=== PATIENT | female | born 1940 | race Caucasian/White ===

== ENCOUNTER 2021-10-28 00:50 | Inpatient (IN) ==
--- NOTE | 2021-10-28 01:29 | Emergency Department Note ---
History of Present Illness General Chief complaint: Mental Health Evaluation Stated complaint: 302 PETITION Time Seen by Provider: 10/28/21 00:57 Source: patient and EMS Mode of arrival: EMS Limitations: altered mental status History of Present Illness Provider complaint: Mental health evaluation This is an 81-year-old female brought in by EMS for mental health evaluation. 302 petition statement written by state [place]. The petition describes paranoia and hallucinations by the patient and concern for her ability to care for herself. Patient was seen and evaluated yesterday at [facility] in the emergency room. Patient underwent labs, CT of the head, UDS, urinalysis, Covid and influenza swabs, all of which were negative. Patient states that there was someone in her house but she did not see them. She states that she knows this because the lights were on. She states the police officers did check her house but did not find anyone and she believes this is because they were hiding. Patient states she does have a brother who comes to visit her in the middle the night with his girlfriend and argues with someone. Patient states she does not have any other friends or family. Patient states she lives in a senior apartment complex. Patient states she was last hospitalized back in August when she was diagnosed with a blood clot and she does take a daily blood thinner, Eliquis. Patient denies any other recent change in her medications. Patient denies any fevers, cough or cold symptoms. Patient states she is hungry. With the assistance of case management, we were able to print out the evaluation earlier today at [facility] including labs, UA, imaging, as well as the ER visit note. They did offer patient inpatient mental health evaluation and she declined. Patient denied SI, HI which she does again here tonight. EMS reports [place] is currently on psych [place]. Pt seen during a time of high acuity and national emergency pandemic while wearing PPE. Home Medications Medication Instructions Recorded Confirmed Type apixaban 5 mg tablet (Eliquis) 5 mg PO BID 10/28/21 10/28/21 History cholecalciferol (vitamin D3) 25 25 mcg PO DAILY 10/28/21 10/28/21 History mcg (1,000 unit) tablet fluticasone propionate 50 2 spray INTRANASAL DAILY 10/28/21 10/28/21 History mcg/actuation nasal spray,suspension (Flonase Allergy Relief) lisinopril 10 mg tablet 10 mg PO DAILY 10/28/21 10/28/21 History loratadine 10 mg tablet 10 mg PO DAILY 10/28/21 10/28/21 History metoprolol tartrate 25 mg tablet 12.5 mg PO BID 10/28/21 10/28/21 History sodium chloride 0.65 % nasal spray 1 spray INTRANASAL BID 10/28/21 10/28/21 History aerosol ([place] Nasal) valacyclovir 500 mg tablet 500 mg PO DAILY 10/28/21 10/28/21 History venlafaxine 150 mg 150 mg PO DAILY 10/28/21 10/28/21 History capsule,extended release 24 hr Allergies Allergy/AdvReac Type Severity Reaction Status Date / Time No Known Allergies Allergy Unverified 10/28/21 01:30 Past Med/Surg History Medical History (Updated 10/29/21 @ 02:21 by Missy Cates DO) Generalized anxiety disorder GERD (gastroesophageal reflux disease) Hyperlipidemia Hypertension Left ventricular outflow obstruction Pulmonary embolism Social History (Updated 10/28/21 @ 01:28 by Missy Cates DO) Smoking Status: Never smoker Hx Alcohol Use: No Hx Substance Use: No Preferred Language: Nigerien Communication Ability: Impaired Application Integration Specialist Required: No Beliefs That Will Affect Care: None marital status: Unknown Current Living Situation: Alone Current Living Situation Comment: Lives in prison apartments. Other Information That Helps Us Care for You: No Feels Safe at Home: Yes and No Is there a partner from a previous relationship who is making you feel unsafe now?: No Any Concerns about Your Family Situation: No Would You Like to Speak to Someone About Your Situation: No Safety Concerns: Afraid for Self Assistive Devices: None Assistive Devices Comment: Reading glasses. Review of Systems A total of 10 systems reviewed and were otherwise negative All systems reviewed & are unremarkable except as noted in HPI & below Physical Exam Vital Signs Vital Signs - 24 hr 10/28/21 01:20 Temperature 37.2 C Temperature Source Oral Pulse Rate 88 Pulse Rate [Right Finger] 88 Respiratory Rate 20 Respiratory Effort / Characteristics Non-Labored Respiratory Depth Normal Respiratory Pattern Regular Blood Pressure 176/74 H Blood Pressure [Right Arm] 176/74 H Blood Pressure Mean 108 Blood Pressure Mean [Right Arm] 108 Blood Pressure Position Lying Pulse Oximetry 95 Oxygen Delivery Method Room Air Sepsis Recent Fever Within 48 Hours No Sepsis New/Unexplained Change in Mental Status Yes Sepsis Action Taken by Nursing No Action Required GENERAL: alert, well appearing, well nourished, no distress, non-toxic EYE EXAM: normal conjunctiva, PERRL and EOM's grossly intact OROPHARYNX: no exudate, no erythema, lips, buccal mucosa, and tongue normal and mucous membranes are moist NECK: supple, no nuchal rigidity, no adenopathy, non-tender LUNGS: Clear to auscultation. Normal chest wall mechanics, no w/r/r HEART: no murmurs, S1 normal and S2 normal ABDOMEN: abdomen soft, non-tender, normo-active bowel sounds, no masses, no rebo und or guarding. BACK: Back is symmetrical on inspection and there is no deformity, no midline tenderness, no CVA tenderness. SKIN: no rashes and no bruising UPPER EXTREMITIES: upper extremities are grossly normal. FROM, nml pulses b/l. LOWER EXTREMITIES: No pitting edema. FROM, nml pulses b/l. NEURO EXAM: Normal sensorium, cranial nerves II-XII grossly intact, normal speech, no gross weakness of arms, no gross weakness of legs. Gross sensation intact. Course Course 0145: Case management states upon additional review of [facility] records, there is one son listed however they were in [place]. There is also the name of a neighbor who periodically checks on her and has taken her home from the hospital previously. No prior psychiatric history noted in [facility] records. 0202: Discussed with Dr. Arboleda. Administered Medications Apixaban (Apixaban 5 Mg Tablet) 5 mg PO BID LEON Stop: 11/27/21 08:59 Last Admin: 10/28/21 20:30 Dose: 5 mg Documented by: [id number] Admin: 10/28/21 09:30 Dose: 5 mg Documented by: [id number] Fluticasone Propionate (Fluticasone Propionate Na Spr 16 Gm Btl) 2 sprays NA DAILY LEON Stop: 11/27/21 08:59 Last Admin: 10/28/21 09:31 Dose: 2 sprays Documented by: [id number] Ceftriaxone Sodium 1,000 mg/ (Dextrose) 50 mls @ 100 mls/hr IV Q24H LEON; Protocol Stop: 11/07/21 07:59 Last Infusion: 10/28/21 10:29 Dose: 0 mls/hr Documented by: [id number] Admin: 10/28/21 09:30 Dose: 100 mls/hr Documented by: [id number] Lisinopril (Lisinopril 10 Mg Tab) 10 mg PO DAILY LEON Stop: 11/27/21 08:59 Last Admin: 10/28/21 09:30 Dose: 10 mg Documented by: [id number] Loratadine (Loratadine 10 Mg Tab) 10 mg PO DAILY LEON Stop: 11/27/21 08:59 Last Admin: 10/28/21 09:31 Dose: 10 mg Documented by: [id number] Metoprolol Tartrate (Metoprolol Tartrate 25 Mg Tab) 12.5 mg PO BID LEON Stop: 11/27/21 08:59 Last Admin: 10/28/21 20:31 Dose: 12.5 mg Documented by: [id number] Admin: 10/28/21 09:31 Dose: 12.5 mg Documented by: [id number] Sodium Chloride (Sodium Chloride 0.65% Na Soln 45 Ml ([place])) 1 sprays NA BID LEON Stop: 11/27/21 08:59 Last Admin: 10/28/21 20:34 Dose: Not Given Documented by: [id number] Admin: 10/28/21 09:31 Dose: 1 sprays Documented by: [id number] Valacyclovir HCl (Valacyclovir Hcl 500 Mg Tablet) 500 mg PO DAILY LEON Stop: 11/27/21 08:59 Last Admin: 10/28/21 09:31 Dose: 500 mg Documented by: [id number] Venlafaxine HCl (Venlafaxine Hcl Xr 150 Mg Capxr) 150 mg PO DAILY LEON Stop: 11/27/21 08:59 Last Admin: 10/28/21 09:32 Dose: 150 mg Documented by: [id number] Vitamin D (Cholecalciferol 1,000 Units 25 Mcg Tab) 1,000 units PO DAILY LEON Stop: 11/27/21 08:59 Last Admin: 10/28/21 09:30 Dose: 1,000 units Documented by: [id number] Medical Decision Making Differential Diagnosis Differential diagnoses considered include mood disorder, infection, hypoglycemia, electrolyte abnormalities, cardiac sources, intracerebral event, toxicologic, neurologic, as well as others. Medical Records Attestation: I reviewed the patient's medical records. Home Medications Current Medication List: was personally reviewed by me Laboratory Data Attestation: I reviewed the patient's lab results. Result diagrams: 10/28/21 07:04 10/28/21 07:04 Lab Results 10/28/21 10/28/21 10/28/21 Range/Units 01:55 02:04 02:04 Magnesium 2.4 (1.8-2.4) mg/dl Vitamin B12 778 (193-986) pg/ml Folate > 20.00 (>5.38) ng/ml Urine Color Yellow Urine Appearance Clear (Clear) Urine pH 6.5 (4.5-7.5) Ur Specific [place] 1.023 (1.000-1.030) Urine Protein Negative (Negative) Urine Glucose (UA) Negative (Negative) Urine Ketones Trace H (Negative) Urine Blood Negative (Negative) Urine Nitrite Negative (Negative) Urine Bilirubin Negative (Negative) Urine Urobilinogen Negative (Negative) Ur Leukocyte Esterase 1+ H (Negative) Urine WBC (Auto) 10-30 H (0-5) /hpf Urine RBC (Auto) 0-4 (0-4) /hpf U Hyaline Cast (Auto) 1-5 (0-5) /lpf U Epithel Cells (Auto) 10-20 H (0-5) /lpf Urine Bacteria (Auto) Negative (Negative) MDM Narrative This is an 81-year-old female brought in by EMS with a 302 petition due to concern for ability to care for herself and new psychosis. Patient with paranoia and delusions as described by petition as well as by patient report at bedside. Patient seen and evaluated at [facility] several hours ago. We were able to pull those records from [facility] and review the labs, urine, urine drug screen, Covid/flu/RSV swabs, and CT of the head which were all reassuring. Patient has no complaints at bedside. No other local family or friends to help provide additional information or to assume responsibility for her. Upon review of [facility] records patient with no prior diagnosis of dementia, no prior history of mental health problems. Due to concern for possible occult physiologic etiology of her delirium vs psychosis and possible need for additional evaluation as well as patient's inability to safely care for herself, case discussed with hospitalist for additional evaluation and management. Impression & Plan Psychosis, Acute dehydration Discharge Plan Visit Data Chief Complaint: Mental Health Evaluation Stated Complaint: 302 PETITION ED Provider: Missy Cates Discharge Problem: Psychosis, Acute dehydration Patient Disposition: Admitted As Inpatient Discharge Instructions Interventions: ED Discharge Assessment Last Done: 10/28/21 06:07 Discharge Problem: Psychosis Qualifiers: Psychosis type: unspecified psychosis type Qualified Code(s): F29 - Unspecified psychosis not due to a substance or known physiological condition
[2021-10-28 02:16] LABS: Appearance Urine Clear (Clear); Bacteria Urine Automated Negative (Negative); Bilirubin Urine Negative (Negative); Blood Urine Negative (Negative); Color Urine Yellow; Glucose Urine UA Negative (Negative); Ketones Urine Trace (Negative); Leukocyte Esterase Urine 1+ (Negative); Nitrite Urine Negative (Negative); Protein Urine Negative (Negative); RBC Urine Automated 0-4 /hpf (0-4); Specific Gravity Urine 1.023 (1.000-1.030); Urobilinogen Urine Negative (Negative); pH Urine 6.5 (4.5-7.5)
[2021-10-28 03:08] LABS: Folate (Folic Acid) > 20.00 ng/ml (>5.38); Vitamin B12 778 pg/ml (193-986)
--- NOTE | 2021-10-28 05:47 | History and Physical Report ---
DATE OF ADMISSION: 10/28/2021. CHIEF COMPLAINT: Mental health evaluation, paranoia. HISTORY OF PRESENT ILLNESS: This is an 81-year-old female with past medical history significant for hyperlipidemia, pulmonary embolism, orthostatic hypotension, dynamic left ventricular outflow obstruction, GERD, complicated UTI, ambulatory dysfunction, generalized anxiety disorder, who was brought in because of paranoia. Patient lives alone. She was found on neighbors porch. She seems to be delusional and paranoid and she was sent to the [facility] yesterday. While she was there, had a CT of the head and labs, unremarkable. The patient was not suicidal or homicidal. The patient is not doing ok otherwise, she was discharged back home. The patient was taken to the house. She did not want to go inside because she felt someone was inside the house, even after police checked her house and said no one is there. She still says someone is hiding inside and she does not want to go. The 301 statement was written by State [place] and brought back. As the patient was unable to care of herself and as the [facility] was on diversion, she was brought in here. Per the ER physician, patient is able to answer all questions appropriately, except she was seeing someone in her house. She could remember that she recently had a blood clot and on Eliquis. Currently, as it is felt not safe to send her back home, so we were called for admission and evaluation by Psychiatry and Neurology and further plan of care. Currently, patient is very hard of hearing, resting, somewhat sleepy, says she is doing fine. Denies any pain or chest pain. No nausea, no cough, or shortness of breath. Could not get any history from the patient currently, and is noncooperative at this time. ALLERGIES: No known drug allergies. PAST MEDICAL HISTORY: As mentioned above. PAST SURGICAL HISTORY: No past surgical history on file. MEDICATIONS: The patient is on Eliquis 5 mg p.o. b.i.d., vitamin D 25 mcg p.o. daily, Flonase 2 sprays intranasal daily p.r.n., lisinopril 10 mg p.o. daily, loratadine 10 mg p.o. daily, metoprolol tartrate 12.5 mg p.o. b.i.d., [place] nasal spray b.i.d., valacyclovir 500 mg p.o. daily, venlafaxine 150 mg p.o. daily. SOCIAL HISTORY: No social history on file. REVIEW OF SYSTEMS: As per HPI. Could not get complete review of systems. PHYSICAL EXAMINATION: GENERAL: The patient is somewhat drowsy, but arousable. VITAL SIGNS: Temperature 37.2, pulse 80, respiratory rate 20, blood pressure 176/74, oxygen 95% on room air. HEENT: Atraumatic. NECK: No JVD. No neck masses seen. CARDIOVASCULAR: S1 and S2 heard. Regular rate and rhythm. No murmur, no gallop. RESPIRATORY SYSTEM: Normal AP diameter. No accessory muscle use. No wheezing, no crackles. ABDOMEN: Soft, bowel sounds present, nontender, no distention. CENTRAL NERVOUS SYSTEM: Drowsy, but arousable. Alert and awake. Speech is clear. No facial droop. Moves extremities. EXTREMITIES: No edema, no erythema. LABORATORY DATA: Magnesium 2.4, vitamin B12 778, but folate greater than 20. Urinalysis positive for +1 leukocyte esterase. Labs done in [place]. Sodium 141, potassium 4, chloride 103, bicarb 27, BUN 24, creatinine 0.9, serum glucose 120, calcium 9.3. CBC: WBC 9.2, hemoglobin 12.7, hematocrit 38.9, platelets 236. SARS-CoV-2 negative. Influenza A and B negative. RSV negative. AST 25, ALT 12, alkaline phosphatase 120, total bilirubin 0.3. Drug levels, acetaminophen less than 5. Salicylate level less than 3. Drug screen negative. ASSESSMENT AND PLAN: This is an 81-year-old female who was brought in from the house because of paranoia and hallucinations. 1. Paranoia and hallucinations. Labs drawn from [facility] and CT of the head is unremarkable. Possible urinary tract infection, continue with IV Rocephin. Admit to medical floor. One-on-one as needed. Psychiatric consult, Neurology consult for further plan and Social service to help with discharge planning as patient does not seem safe to go home. 2. History of pulmonary embolism in 08/2021, when she was in [place]. She was started on Eliquis which we will continue. 3. Hypertension. Continue lisinopril and metoprolol. 4. Anxiety. Continue venlafaxine. 5. Deep venous thrombosis prophylaxis. On Eliquis. DISPOSITION: Admit to medical floor. PT/OT prior to discharge. Social service to help with discharge planning. Level 1 full code for now. The patient seems to have a son who lives in [place]. ER was not able to contact him and was also not able to contact her neighbors for now. Job ID: [id number] [facility]
[2021-10-28] MEDS ORDERED: POLYETHYLENE (MIRALAX) 17 GM PACK PO PRN (06:18)
[2021-10-28] MEDS ORDERED: ONDANSETRON INJ 2 MG/ML 2 ML VIAL IV PRN (06:18)
[2021-10-28] MEDS ORDERED: ACETAMINOPHEN 325 MG TAB PO PRN (06:18)
[2021-10-28] MEDS ORDERED: hydrALAZINE HCL 20 MG/ML VIAL IV PRN (07:41)
[2021-10-28 07:42] LABS: Basophils # (auto) 0.03 K/uL (0-0.2); Basophils % (auto) 0.4 %; Eosinophils # (auto) 0.17 K/uL (0-0.5); Eosinophils % (auto) 2.3 %; Hematocrit (blood only) 37.6 % (37-47); Hemoglobin 12.2 g/dL (12.0-16.0); Immature Granulocytes # (auto) 0.01 K/uL (0.00-0.02); Immature Granulocytes % (auto) 0.1 %; Lymphocytes # (auto) 1.46 K/uL (1.2-3.4); Lymphocytes % (auto) 19.8 %; Mean Corpuscular Hgb Conc 32.4 g/dL (32-36); Mean Corpuscular Volume 95.4 fL (80-100); Mean Platelet Volume 9.3 fL (7.4-10.4); Monocytes # (auto) 0.87 K/uL (0.11-0.59); Monocytes % (auto) 11.8 %; Neutrophils # (auto) 4.83 K/uL (1.4-6.5); Neutrophils % (auto) 65.6 %; Platelet Count 234 K/uL (130-400); RDW Coefficient of Variation 13.3 % (11.5-14.5); RDW Standard Deviation 46.5 fL (36.4-46.3); Red Blood Count 3.94 M/uL (4.2-5.4); White Blood Count 7.37 K/uL (4.8-10.8)
[2021-10-28 08:03] LABS: BUN Creatinine Ratio 25.6 (10-20); Calcium 8.5 mg/dl (8.5-10.1); Creatinine Clr Calc Pharmacy 47.2 ml/min; Est GFR (African American) 78.3 ml/min; Est GFR (Non-African American) 67.6 ml/min; Potassium 4.1 mmol/L (3.5-5.1)
[2021-10-28 08:07] LABS: Magnesium 2.5 mg/dl (1.8-2.4)
[2021-10-28] MEDS: CHOLECALCIFEROL 1,000 UNITS 25 MCG TAB PO SCH (09:30)
[2021-10-28] MEDS: APIXABAN 5 MG TABLET PO SCH ×2 (09:30→20:30)
[2021-10-28] MEDS: lisinopril 10 MG TAB PO SCH (09:30)
[2021-10-28] MEDS: cefTRIAXone SODIUM 1,000 MG in DEXTROSE 5% 50 ML IV SCH (09:30)
[2021-10-28] MEDS: SODIUM CHLORIDE 0.65% NA SOLN 45 ML (OCEAN) SCH ×2 (09:31→20:34)
[2021-10-28] MEDS: valACYclovir HCL 500 MG TABLET PO SCH (09:31)
[2021-10-28] MEDS: METOPROLOL TARTRATE 25 MG TAB PO SCH ×2 (09:31→20:31)
[2021-10-28] MEDS: LORATADINE 10 MG TAB PO SCH (09:31)
[2021-10-28] MEDS: FLUTICASONE PROPIONATE NA SPR 16 GM BTL SCH (09:31)
[2021-10-28] MEDS: VENLAFAXINE HCL XR 150 MG CAPXR PO SCH (09:32)
--- NOTE | 2021-10-28 12:43 | Electrocardiogram Report ---
Test Reason : Blood Pressure : / mmHG Vent. Rate : 080 BPM Atrial Rate : 080 BPM P-R Int : 142 ms QRS Dur : 118 ms QT Int : 436 ms P-R-T Axes : 058 -15 065 degrees QTc Int : 502 ms Normal sinus rhythm Left ventricular hypertrophy with QRS widening and repolarization abnormality Prolonged QT Abnormal ECG No previous ECGs available Confirmed by Chi Arellano ([id number]) on 10/28/2021 12:42:51 PM Referred By: REFERRED SELF Confirmed By:Carlos Eduardo Arellano
--- NOTE | 2021-10-28 13:19 | Communication Note ---
Date of Service: October 28, 2021 received psych consult, chart reviewed, liaison has attempted to see the patient to begin consult today and she has been sleeping and difficult to arouse. Will reattempt/complete consult as able on 10/29/21.
--- NOTE | 2021-10-28 18:15 | Communication Note ---
Date of Service: October 28, 2021 records reviewed patient seen at bedside sleeping but easily awakened oriented x 2 with cues somewhat confused no chest pain, dyspnea, palpitations, dizziness no abdominal pain ,nausea, fever/chills, problems with urination VS noted not in distress clear BS BL normal HR, regular rhythm no abdominal tenderness Labs reviewed a/p> Paranoia Behavioral Disturbance Psych consulted Possible UTI continue Abx Varun Buenrostro MD
[2021-10-29] MEDS: cefTRIAXone SODIUM 1,000 MG in DEXTROSE 5% 50 ML IV SCH (08:06)
[2021-10-29] MEDS: FLUTICASONE PROPIONATE NA SPR 16 GM BTL SCH (08:07)
[2021-10-29] MEDS: valACYclovir HCL 500 MG TABLET PO SCH (08:07)
[2021-10-29] MEDS: LORATADINE 10 MG TAB PO SCH (08:07)
[2021-10-29] MEDS: lisinopril 10 MG TAB PO SCH (08:07)
[2021-10-29] MEDS: METOPROLOL TARTRATE 25 MG TAB PO SCH ×2 (08:07→21:11)
[2021-10-29] MEDS: CHOLECALCIFEROL 1,000 UNITS 25 MCG TAB PO SCH (08:07)
[2021-10-29] MEDS: APIXABAN 5 MG TABLET PO SCH ×2 (08:07→21:12)
[2021-10-29] MEDS: SODIUM CHLORIDE 0.65% NA SOLN 45 ML (OCEAN) SCH ×2 (08:08→21:14)
[2021-10-29] MEDS: VENLAFAXINE HCL XR 150 MG CAPXR PO SCH (08:08)
--- NOTE | 2021-10-29 11:59 | Psychiatric Consultation ---
Date of Consultation October 29, 2021 Impression / Recommendations Impression 81 yo female with significant age related hearing loss who lives alone, likely sundowns and becomes more paranoid at night. She is currently oriented by confused on timing of some events but otherwise no evidence of primary thought disorder. The concern is she did wonder to sit on a neighbor's porch in the cold rather than call supports for help. She has a history of AMS on 1 prior occasion with UTI. (1) Paranoia: she would benefit from hearing aides as likely misinterpreting home environment in evenings when dark and worsening likely sundowning due to cogni tive changes given the warnings re: geriatric population, as not aggressive or hallucinating would try to initiate more in home supports before starting atypical antipscyhotic, particularly in elderly patient who lives alone and would have fall risk. If hospitalist wants to weight risks/benefits to proceed with trial following completion of neurologic/dementia work up would suggest Risperdal 0.125 or 0.25 mg in early evening. she desires to continue Effexor XR under direction of PCP, she reports good compliance but confusion can sometimes be an atypical presentation of discontinuation syndrome if misses doses. it doesn't appear that she has an active prescription for Ativan, would avoid, particularly at 1 mg dose given age and fall risk. will follow as on 302 warrant until medically cleared. There will likely be no indication for involuntary psychiatric admission. Risk Factors Assessment Do You Have Access To A Gun?: No Psych History Identifying Data 81 yo female with no known psych history admit medically on 10/28/21 for AMS. Consult is by [facility] hospitalist service. There is a 302 warrant by police on her chart. She is extremely hard of hearing. Chief Complaint "My brother shouldn't be dating and spending money, I worry he's after my money". History of Present Illness Ms. King lives independently, CM has received some history from her neighbors who essentially outlined her in home services (2 hrs per week for cleaning and groceries). She was on a neighbor's porch in the cold and taken to [facility] for a work up. Soon after returning home she called the police re: intruder (presumably brother) and suggested may have been hearing him whisper so she was brought to [facility] for additional assessment. She reports being proud that "I've gotten this far", referring to being independent at 81. She described a variety of past issues related to her brothers as if they were ongoing (per neighbors she is estranged from all of her family, including son in [place]". She denies depression and was oriented. She endorsed taking Effexor XR for unspecified anxiety and "does it's job" but did not seem to recall past rx of lorazepam (180 of 1 mg tabs last prescribed January per PDMP). She states that disapproves of how her brother spends money and tries to keep her wolf on her rather than the home. She denies hearing or seeing him but "recently I just get convinced that he's coming at night." Past Psychiatric History Previous Psych History: no formal Outpatient Services: meds per PCP Previous Psych Admissions: denied Do You Have Access To A Gun?: No History of Previous Suicide Attempt: No Past Medication Trials: could not recall Allergies Allergy/AdvReac Type Severity Reaction Status Date / Time No Known Allergies Allergy Unverified 10/28/21 01:30 Home Medications Medication Instructions Recorded Confirmed Type apixaban 5 mg tablet (Eliquis) 5 mg PO BID 10/28/21 10/28/21 History cholecalciferol (vitamin D3) 25 25 mcg PO DAILY 10/28/21 10/28/21 History mcg (1,000 unit) tablet fluticasone propionate 50 2 spray INTRANASAL DAILY 10/28/21 10/28/21 History mcg/actuation nasal spray,suspension (Flonase Allergy Relief) lisinopril 10 mg tablet 10 mg PO DAILY 10/28/21 10/28/21 History loratadine 10 mg tablet 10 mg PO DAILY 10/28/21 10/28/21 History metoprolol tartrate 25 mg tablet 12.5 mg PO BID 10/28/21 10/28/21 History sodium chloride 0.65 % nasal spray 1 spray INTRANASAL BID 10/28/21 10/28/21 History aerosol (Sacred Heart Nasal) valacyclovir 500 mg tablet 500 mg PO DAILY 10/28/21 10/28/21 History venlafaxine 150 mg 150 mg PO DAILY 10/28/21 10/28/21 History capsule,extended release 24 hr Family History denied--but of course endorses that her "brother should be here". Substance Abuse History denied Personal History Employment Status: Retired Marital Status: Number Of Children: 1 son in [place] Beliefs That Will Affect Care: None History of Legal Problems: denied Psychological Trauma History Comment: none reported, "I've always looked young" Patient History Medical History Generalized anxiety disorder GERD (gastroesophageal reflux disease) Hyperlipidemia Hypertension Left ventricular outflow obstruction Pulmonary embolism Social History (Updated 10/28/21 @ 01:28 by Missy Cates DO) Smoking Status: Never smoker Hx Alcohol Use: No Hx Substance Use: No Preferred Language: Amharic Communication Ability: Impaired Recovery Agent Required: No Beliefs That Will Affect Care: None marital status: Unknown Current Living Situation: Alone Current Living Situation Comment: Lives in snf apartments. Other Information That Helps Us Care for You: No Feels Safe at Home: Yes and No Is there a partner from a previous relationship who is making you feel unsafe now?: No Any Concerns about Your Family Situation: No Would You Like to Speak to Someone About Your Situation: No Safety Concerns: Afraid for Self Assistive Devices: None Assistive Devices Comment: Reading glasses. Physical Exam Psychiatric: Orientation: alert and oriented x 3 Apperance: appropriately groomed Eye Contact: good eye contact Motor Behavior: no abnormal motor movements Speech: normal rate/rhythm/volume of speech Affect: euthymic affect Mood: + anxious mood Thought Process: + perseveration Thought Content: + paranoid Suicidal Thoughts: denies suicidal thoughts Homicidal Thoughts: denies homicidal thoughts Hallucinations: no auditory hallucinations and no visual hallucinations Cognition: attention grossly intact and language grossly intact Estimated Intelligence: consistent with education level Insight: + limited insight Judgement: + limited judgement Vital Signs (Past 24 Hours): Last Vital Signs Temp 36.7 C 10/29/21 08:26 Pulse 64 10/29/21 08:26 Resp 16 10/29/21 08:26 BP 146/66 H 10/29/21 08:26 Pulse Ox 92 10/29/21 08:26 Review of Systems All systems reviewed & are unremarkable except as noted in HPI & below Results & Data ([facility]) Laboratory Results B12 and folate normal, no TSh (unless done at [facility]) Medications Administered Apixaban (Apixaban 5 Mg Tablet) 5 mg PO BID LEON Stop: 11/27/21 08:59 Last Admin: 11/28/21 08:07 Dose: 5 mg Documented by: [id number] Admin: 10/28/21 20:30 Dose: 5 mg Documented by: [id number] Admin: 10/28/21 09:30 Dose: 5 mg Documented by: [id number] Fluticasone Propionate (Fluticasone Propionate Na Spr 16 Gm Btl) 2 sprays NA DAILY LEON Stop: 11/27/21 08:59 Last Admin: 10/29/21 08:07 Dose: 2 sprays Documented by: [id number] Admin: 10/28/21 09:31 Dose: 2 sprays Documented by: [id number] Ceftriaxone Sodium 1,000 mg/ (Dextrose) 50 mls @ 100 mls/hr IV Q24H [facility]; Protocol Stop: 11/07/21 07:59 Last Infusion: 10/29/21 09:01 Dose: 0 mls/hr Documented by: [id number] Admin: 10/29/21 08:06 Dose: 100 mls/hr Documented by: [id number] Infusion: 10/28/21 10:29 Dose: 0 mls/hr Documented by: [id number] Admin: 10/28/21 09:30 Dose: 100 mls/hr Documented by: [id number] Lisinopril (Lisinopril 10 Mg Tab) 10 mg PO DAILY [facility] Stop: 11/27/21 08:59 Last Admin: 10/29/21 08:07 Dose: 10 mg Documented by: [id number] Admin: 10/28/21 09:30 Dose: 10 mg Documented by: [id number] Loratadine (Loratadine 10 Mg Tab) 10 mg PO DAILY LEON Stop: 11/27/21 08:59 Last Admin: 10/29/21 08:07 Dose: 10 mg Documented by: [id number] Admin: 10/28/21 09:31 Dose: 10 mg Documented by: [id number] Metoprolol Tartrate (Metoprolol Tartrate 25 Mg Tab) 12.5 mg PO BID LEON Stop: 11/27/21 08:59 Last Admin: 10/29/21 08:07 Dose: 12.5 mg Documented by: [id number] Admin: 10/28/21 20:31 Dose: 12.5 mg Documented by: [id number] Admin: 10/28/21 09:31 Dose: 12.5 mg Documented by: [id number] Sodium Chloride (Sodium Chloride 0.65% Na Soln 45 Ml (Sacred Heart)) 1 sprays NA BID LEON Stop: 11/27/21 08:59 Last Admin: 10/29/21 08:08 Dose: 1 sprays Documented by: [id number] Admin: 10/28/21 20:34 Dose: Not Given Documented by: [id number] Admin: 10/28/21 09:31 Dose: 1 sprays Documented by: [id number] Valacyclovir HCl (Valacyclovir Hcl 500 Mg Tablet) 500 mg PO DAILY LEON Stop: 11/27/21 08:59 Last Admin: 10/29/21 08:07 Dose: 500 mg Documented by: [id number] Admin: 10/28/21 09:31 Dose: 500 mg Documented by: [id number] Venlafaxine HCl (Venlafaxine Hcl Xr 150 Mg Capxr) 150 mg PO DAILY LEON Stop: 11/27/21 08:59 Last Admin: 10/29/21 08:08 Dose: 150 mg Documented by: [id number] Admin: 10/28/21 09:32 Dose: 150 mg Documented by: [id number] Vitamin D (Cholecalciferol 1,000 Units 25 Mcg Tab) 1,000 units PO DAILY LEON Stop: 11/27/21 08:59 Last Admin: 10/29/21 08:07 Dose: 1,000 units Documented by: [id number] Admin: 10/28/21 09:30 Dose: 1,000 units Documented by: [id number] Coding Level of Care Code 03106 Inpt Consult Level 3 Diagnoses Paranoia F22
--- NOTE | 2021-10-29 12:19 | Hospitalist Progress Note ---
Date of Service October 29, 2021 Assessment & Plan (1) Paranoia: Plan: 1. Paranoia and hallucinations. Labs drawn from [facility] and CT of the head is unremarkable. Evaluated by psychiatrist Dr. Lowry Likely underlying cognitive dysfunction/dementia with sundowning Recommend dementia work-up, neurology consultation pending Continue Effexor After dementia work-up, may consider risperidone at night Remains under 302 until further follow-up evaluation by psychiatrist Urine culture negative UTI ruled out Discontinue ceftriaxone 2. History of pulmonary embolism in 08/2021, when she was in [place]. --Continue Eliquis 3. Hypertension. Continue lisinopril and metoprolol. 4. Anxiety. Continue venlafaxine. 5. Deep venous thrombosis prophylaxis. On Eliquis. Admission and Anticipated Discharge Date Admission Date: October 28, 2021 Subjective Follow-up for paranoia, etc. Seen resting in bed, comfortable, not in distress Calm, cooperative Seems to be oriented x2, answers some questions appropriately but does voice concern regarding the possibility of person intruding her home in passages other than the front door Appears forgetful Denies abdominal pain, problems urination or bowel movement, fevers or chills, nausea vomiting no chest pain, dyspnea, palpitations, dizziness No other symptoms Review of Systems Review of Systems: all noted and negative except for above Physical Exam Physical Exam: General- oriented x 1-2, not in distress, speaks in sentences with no effort or accessory muscle use Eyes- anicteric Neck- no JVD Lungs- clear BS BL Heart- normal rate, regular rhythm; no murmurs Abdomen- normal bowel sounds, nondistended, soft, nontender Extremities- no pretibial edema, no calf tenderness Neuro- alert, oriented x 2; no gross focal neurologic deficits Skin- warm & dry Results & Data Results & Data ([facility]) Vital Signs (Past 12 Hours) Vital Signs Temp Pulse Resp BP Pulse Ox 10/29/21 08:26 36.7 C 64 16 146/66 H 92
--- NOTE | 2021-10-29 18:04 | Consultation Report ---
NEUROLOGY CONSULTATION NOTE DATE OF CONSULTATION: 10/29/2021. CHIEF COMPLAINT: Paranoia. HISTORY OF PRESENT ILLNESS: An 81-year-old female brought into the Emergency Department yesterday or over the weekend for concerns of paranoid activity/altered mental status. The patient lives [facility]. She lives alone with her cat, she states. The patient was found to be on the neighbor's por ch in the cold and taken to the [facility] for workup. After returning home, she called the police due to a presumed or possible intruder. This was presumed to be her brother. Lavelle vergara then escorted the patient to [facility]. Today, the patient is sleeping upon a rrival, although she denies any paranoia or any recollection of the event regarding an intruder. Willa rology was consulted for neurocognitive assessment. ALLERGIES: No known drug allergies. PAST MEDICAL HISTORY: Hypertension, generalized anxiety, hyperlipidemia, gastroesophageal reflux dis ease, history of pulmonary embolism on Eliquis. PAST SURGICAL HISTORY: No recent surgeries. HOME MEDICATIONS: Eliquis 5 mg twice daily, vitamin D, Flonase, loratadine, metoprolol, valacyclovir , Effexor 150 mg daily. SOCIAL HISTORY: The patient lives at home with her cat. No reported alcohol use. Nonsmoker. REVIEW OF SYSTEMS: All other review of systems was negative except as noted above in the HPI. PHYSICAL EXAMINATION: VITAL SIGNS: Blood pressure 146/66, pulse is 64, respiratory rate 16, temperature is 36.7 degrees Ce lsius. GENERAL: The patient is sleeping upon entering the room, although arouses to voice. HEENT: Her head is normocephalic and atraumatic. Eyelids are normal. Normal conjunctivae. NECK: Supple. LUNGS: Normal respiratory effort. CARDIAC: Pulses are normal. ABDOMEN: Nondistended. SKIN: No skin rash. PSYCHIATRIC: She has a normal mood and normal affect. NEUROLOGIC: She is awake, alert, oriented to her age, disoriented to place. Attention is decreased. Knowledge is poor. Comprehension is intact. She is following simple commands, speech is clear. P upils are symmetric. Extraocular muscles intact. Facial sensation is intact. No facial asymmetry. Hearing is grossly impaired. Palate is symmetric. Good shoulder shrug. Tongue is midline. Gait e valuation deferred. She has no tremor, sensation is intact. Muscle tone is normal. DIAGNOSTIC TESTING AND LABORATORY VALUES: WBC 7.37, hemoglobin 12.2, platelet count 234. Sodium 145 , potassium 4.1, chloride 110, BUN 21, creatinine 0.82, magnesium 2.5. Vitamin B12 778. Folate grea ter than 20. Urinalysis showed trace ketones, 10-30 WBCs. Urine culture showed mixed skin nakia. N o additional imaging. ASSESSMENT AND PLAN: An 81-year-old female with a history of anxiety on Effexor as well as a history of pulmonary embolism on Eliquis, admitted with odd behaviors or paranoia. The patient is severely hard of hearing on examination, which makes communication difficult. Appreciate Psychiatric consulta tion and recommendations as noted below. Although this is the first time meeting this patient with l imited prior history, certainly would suggest that the patient has some underlying degree of some cog nitive impairment. Acute sensation of Effexor can produce odd symptoms and altered behavior. Would recommend resuming home Effexor for now. This may not be a good long-term medication as missed doses or abrupt cessation this can produce odd behavior. Hospital workup is reassuring and there are no c lear signs of a urinary tract infection contributing to her behavior noted by the police. I would fa vor the use of Seroquel or low dose Seroquel if necessary for paranoia or hallucinations. We will tr y to defer at this time. At the moment, patient appears pleasant, but very hard of hearing. Would ce rtainly benefit from hearing aids. I believe the patient would benefit from seeing Neurology as an o utpatient as cognitive assessment will likely be significantly worse given the hospital admission and risk of delirium. For now, no additional neurological testing necessary. Appreciate social service 's recommendations regarding placement help. Vitamin B12 and folate levels were checked, which came back normal. Please contact me with any additional questions or concerns for now. Job ID: [id number]
[2021-10-30] MEDS: APIXABAN 5 MG TABLET PO SCH ×2 (08:50→20:01)
[2021-10-30] MEDS: CHOLECALCIFEROL 1,000 UNITS 25 MCG TAB PO SCH (08:51)
[2021-10-30] MEDS: lisinopril 10 MG TAB PO SCH (08:51)
[2021-10-30] MEDS: FLUTICASONE PROPIONATE NA SPR 16 GM BTL SCH (08:51)
[2021-10-30] MEDS: METOPROLOL TARTRATE 25 MG TAB PO SCH ×2 (08:52→20:02)
[2021-10-30] MEDS: LORATADINE 10 MG TAB PO SCH (08:52)
[2021-10-30] MEDS: valACYclovir HCL 500 MG TABLET PO SCH (08:53)
[2021-10-30] MEDS: SODIUM CHLORIDE 0.65% NA SOLN 45 ML (OCEAN) SCH ×2 (08:53→20:03)
[2021-10-30] MEDS: VENLAFAXINE HCL XR 150 MG CAPXR PO SCH (08:54)
--- NOTE | 2021-10-30 14:04 | Hospitalist Progress Note ---
Date of Service October 30, 2021 Assessment & Plan (1) Paranoia: Plan: 1. Paranoia and hallucinations. -Patient initially evaluated at [facility] on 10/28 -noted that labs, head CT, UDS, UA, Covid and influenza swabs were all unremarkable. When patient returned home, she refused to go inside due to fear of someone hiding in her home. Police were called and patient was brought to [facility] ED under a 302 warrant. 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 Recommends to continue home Effexor for now. If continued issues, could consider Risperdal 0.125 or .25 mg in the early evening. -UTI ruled out - ceftriaxone discontinued -PT/OT recommending acute rehab. Referral placed to [facility]. 2. History of pulmonary embolism in 08/2021 -Continue Eliquis 3. Hypertension. -BP persistently elevated, will increase lisinopril to 20 mg daily, continue home dose of metoprolol 4. Anxiety. -Continue venlafaxine. 5. DVT prophylaxis -On Eliquis Dispo: PT/OT recommending acute rehab. Referral placed to [facility]. Patient estranged from all of her family. Previously living alone in an apartment with neighbors who check in on her. Admission and Anticipated Discharge Date Admission Date: October 28, 2021 Supervising Physician Co-Signing Physician Notes Attending Addendum: delayed entry date of service noted above care coordinated with SANDOVAL Isaac please refer to her notes for full details, I agree with her notes patient seen and examined, records reviewed by myself as well on exam, patient seen resting in bed, comfortable not in distress calm, cooperative answers most questions appropriately although seems to think hard before answering very forgetful no chest pain, dyspnea, palpitations, dizziness VS noted and reviewed oriented x 1-2, not in distress, speaks in sentences with no effort nor accessory muscle use normal rate, regular rhythm, no murmurs clear BS bilaterally non distended, soft, nontender no bipedal edema, erythema, warmth no new neuro deficits labs noted and reviewed ASSESSMENT AND PLAN Episode of Paranoid Behavior Possible Underlying Dementia - UTI ruled out - Psych consulted - Neuro consulted - calm, cooperative but very forgetful CM working on placement to Rehab other diagnoses and plan of care as per SANDOVAL Isaac's notes Varun Buenrostro MD Subjective Patient seen and examined. Follow-up for paranoia. Patient sitting on the edge of bed, offers no complaints. Oriented and pleasant however seems to have limited insight. Denies chest pain shortness of breath. No abdominal pain or nausea. Physical Exam Constitutional: WD/WN, vitals as above no acute distress Sitting on the edge of the bed Respiratory: normal respiratory effort, lungs clear to auscultation Cardiovascular: Rate/Rhythm: regular rate and regular rhythm Vessels: normal peripheral pulses Extremities: no edema Gastrointestinal (Abdomen): Percussion/Palpation: abdomen soft; abdomen nontender Skin: no rashes, warm and dry Neurologic: no focal motor deficits Psychiatric: Orientation: alert, oriented to person and oriented to place; + not oriented to time Insight: + limited insight Results & Data Results & Data ([place]) Vital Signs (Past 12 Hours) Vital Signs Temp Pulse Resp BP Pulse Ox 10/30/21 07:42 36.7 C 67 18 166/66 H 93
[2021-10-30] MEDS ORDERED: lisinopril 10 MG TAB PO ONE (14:16)
--- NOTE | 2021-10-30 15:21 | Psychiatric Progress Note ---
Date of Service October 30, 2021 Impression / Recommendations Impression 81 yo female with significant age related hearing loss who lives alone, likely sundowns and becomes more paranoid at night. She is currently oriented but confused on timing of some events but otherwise no evidence of primary thought disorder. Paranoid and confusion seems to be improving a bit suggesting likely contribution from possible delirium versus dementia with sundowning with fluctuations. Tolerating Effexor XR well. (1) Paranoia: -she would benefit from hearing aides as likely misinterpreting home environment in evenings when dark and worsening likely sundowning due to cognitive changes -recommend avoiding antipsychotics in favor of increased home supports particularly given no acute behavioral events since presenting to the hospital. -continue with Effexor XR 150 mg qd -will follow as on 302 warrant until medically cleared and at that time will not file for 302 commitment given no evidence for primary psychiatric disorder Risk Factors Assessment Do You Have Access To A Gun?: No Interval History Identifying Information 81 yo woman with history of hearing impairment, PE, HTN, anxiety and recent paranoia concerning for worsening cognitive dysfunction. psychiatry was consulted for recommendations regarding paranoia. Chief Complaint "I want to go home, my cat needs me". Review of Systems Notes Endorses stable sleep and appetite. Subjective Subjective Patient was seen & assessed and interval progress reviewed. Romana has significant hearing difficulties which limits the exam but today she is oriented to person and place and states her desire to be able to leave the hospital soon so that she can return home and be with her cat. Notes that her cat is being taken care of currently by "someone" and then states that "she hates men because she never sees them, she lives only around women, men are only outside". Cooperative and pleasant. Denies any medication side effects. Physical Exam Psychiatric Orientation: oriented to person and oriented to place Apperance: appropriately groomed Eye Contact: good eye contact Motor Behavior: no abnormal motor movements Speech: normal rate/rhythm/volume of speech Affect: euthymic affect Mood: + anxious mood Thought Process: + circumstantial thought process and + looseness of associations Thought Content: reality based without delusions Suicidal Thoughts: denies suicidal thoughts Homicidal Thoughts: denies homicidal thoughts Hallucinations: no auditory hallucinations and no visual hallucinations Cognition: attention grossly intact and language grossly intact Estimated Intelligence: consistent with education level Insight: + limited insight Judgement: + limited judgement Vital Signs (Past 24 Hours) Last Vital Signs Temp 36.7 C 10/30/21 07:42 Pulse 67 10/30/21 07:42 Resp 18 10/30/21 07:42 BP 166/66 H 10/30/21 07:42 Pulse Ox 93 10/30/21 07:42 Results & Data ([facility]) Current Inpatient Medications Current Inpatient Medications: Current Inpatient Medications Acetaminophen (Acetaminophen 325 Mg Tab) 650 mg PO Q4H PRN PRN Reason: pain/fever Stop: 11/27/21 06:17 Apixaban (Apixaban 5 Mg Tablet) 5 mg PO BID [facility] Stop: 11/27/21 08:59 Last Admin: 10/30/21 08:50 Dose: 5 mg Documented by: Fluticasone Propionate (Fluticasone Propionate Na Spr 16 Gm Btl) 2 sprays NA DAILY [facility] Stop: 11/27/21 08:59 Last Admin: 10/30/21 08:51 Dose: 2 sprays Documented by: Hydralazine HCl (Hydralazine Hcl 20 Mg/Ml Vial) 5 mg IV Q6H PRN PRN Reason: hypertension Stop: 11/27/21 07:44 Last Admin: 10/30/21 00:22 Dose: 5 mg Documented by: Lisinopril (Lisinopril 20 Mg Tab) 20 mg PO QAM [facility] Stop: 11/30/21 08:59 Loratadine (Loratadine 10 Mg Tab) 10 mg PO DAILY [facility] Stop: 11/27/21 08:59 Last Admin: 10/30/21 08:52 Dose: 10 mg Documented by: Metoprolol Tartrate (Metoprolol Tartrate 25 Mg Tab) 12.5 mg PO BID [facility] Stop: 11/27/21 08:59 Last Admin: 10/30/21 08:52 Dose: 12.5 mg Documented by: Ondansetron HCl (Ondansetron Inj 2 Mg/Ml 2 Ml Vial) 4 mg IV Q6H PRN PRN Reason: Nausea Stop: 11/27/21 06:17 Polyethylene Glycol (Polyethylene (Miralax) 17 Gm Pack) 17 gm PO DAILY PRN PRN Reason: Constipation Stop: 11/27/21 06:17 Sodium Chloride (Sodium Chloride 0.65% Na Soln 45 Ml ([place])) 1 sprays NA BID [facility] Stop: 11/27/21 08:59 Last Admin: 10/30/21 08:53 Dose: 1 sprays Documented by: Valacyclovir HCl (Valacyclovir Hcl 500 Mg Tablet) 500 mg PO DAILY [facility] Stop: 11/27/21 08:59 Last Admin: 10/30/21 08:53 Dose: 500 mg Documented by: Venlafaxine HCl (Venlafaxine Hcl Xr 150 Mg Capxr) 150 mg PO DAILY [facility] Stop: 11/27/21 08:59 Last Admin: 10/30/21 08:54 Dose: 150 mg Documented by: Vitamin D (Cholecalciferol 1,000 Units 25 Mcg Tab) 1,000 units PO DAILY [facility] Stop: 11/27/21 08:59 Last Admin: 10/30/21 08:51 Dose: 1,000 units Documented by:
[2021-10-30] MEDS: lisinopril 20 MG TAB PO SCH (15:26)
[2021-10-31] MEDS: valACYclovir HCL 500 MG TABLET PO SCH (09:34)
[2021-10-31] MEDS: CHOLECALCIFEROL 1,000 UNITS 25 MCG TAB PO SCH (09:35)
[2021-10-31] MEDS: APIXABAN 5 MG TABLET PO SCH ×2 (09:35→20:09)
[2021-10-31] MEDS: FLUTICASONE PROPIONATE NA SPR 16 GM BTL SCH (09:35)
[2021-10-31] MEDS: LORATADINE 10 MG TAB PO SCH (09:36)
[2021-10-31] MEDS: METOPROLOL TARTRATE 25 MG TAB PO SCH ×2 (09:37→20:09)
[2021-10-31] MEDS: VENLAFAXINE HCL XR 150 MG CAPXR PO SCH (09:38)
[2021-10-31] MEDS: SODIUM CHLORIDE 0.65% NA SOLN 45 ML (OCEAN) SCH ×2 (09:38→20:09)
[2021-10-31] MEDS: lisinopril 20 MG TAB PO SCH (10:21)
--- NOTE | 2021-10-31 13:03 | Psychiatric Progress Note ---
Date of Service October 31, 2021 Impression / Recommendations Impression 81 yo female with significant age related hearing loss who lives alone, likely sundowns and becomes more paranoid at night. She is currently oriented but confused on timing of some events but otherwise no evidence of primary thought disorder. Paranoid and confusion seems to be improving a bit suggesting likely contribution from possible delirium versus dementia with sundowning with fluctuations. Tolerating Effexor XR well. 10/31/21: eager to return home and frustrated with recommendation for subacute rehab. At this point seems to have limited ability to communicate rationale, risks, benefits or alternatives of going home against medical advice versus going to subacute rehab. This inability to rationale discuss risks, benefits or alternatives in addition to her suspected dementia means she likely does not have decision making capacity regarding decision of disposition. If however, PT/OT and her medical team feel she would be safe to go home or if she can explain the potential risks of not attending subacute rehab then home may be appropriate if additional in home supports can be put into place especially with goal of getting her an appointment for hearing aids after discharge. (1) Paranoia: -she would benefit from hearing aides as likely misinterpreting home environment in evenings when dark and worsening likely sundowning due to cognitive changes -recommend avoiding antipsychotics in favor of increased home supports particularly given no acute behavioral events since presenting to the hospital. -continue with Effexor XR 150 mg qd -will follow as on 302 warrant until medically cleared and at that time will not file for 302 commitment given no evidence for primary psychiatric disorder -likely does not have decision making capacity regarding disposition but medical team can better discuss with her and assess her understanding of risks versus benefits of home versus subacute rehab disposition options Risk Factors Assessment Do You Have Access To A Gun?: No Interval History Identifying Information 81 yo woman with history of hearing impairment, PE, HTN, anxiety and recent paranoia concerning for worsening cognitive dysfunction. psychiatry was consulted for recommendations regarding paranoia. Chief Complaint "I want to go home". Review of Systems Notes Reports stable sleep and appetite. Subjective Subjective Patient was seen & assessed and interval progress reviewed. Assessment remains limited by her significant hearing impairment but today she notes irritable mood due to desire to go home and be with her cat. Stated her frustration that her team wants to "send me somewhere else, I just want to go home". Stated she has some in home supports of help with laundry and groceries but otherwise no services. Discussed my concern that she could become confused again such as what lead to this admission. She attributed her confusion to her brother being back in life and "messing with me". Could not otherwise discuss risks, benefits or alternatives in terms of going home versus subacute rehab as recommended by her team. Stated her frustration with having to sit in bed in the hospital since at home "I'm always moving around". Physical Exam Psychiatric Orientation: alert, oriented to person and oriented to place Apperance: appropriately dressed and appropriately groomed Eye Contact: good eye contact Motor Behavior: no abnormal motor movements Speech: normal rate/rhythm/volume of speech Affect: + irritable affect Mood: + irritable mood Thought Process: goal directed thought process Thought Content: reality based without delusions (perseverative about going home) Suicidal Thoughts: denies suicidal thoughts Homicidal Thoughts: denies homicidal thoughts Hallucinations: no auditory hallucinations and no visual hallucinations Cognition: attention grossly intact and language grossly intact; + recent memory not intact Insight: + impaired insight Judgement: + impaired judgement Vital Signs (Past 24 Hours) Last Vital Signs Temp 37.0 C 10/31/21 07:14 Pulse 72 10/31/21 07:14 Resp 17 10/31/21 07:14 BP 169/74 H 10/31/21 07:14 Pulse Ox 94 10/31/21 07:14 Results & Data ([facility]) Current Inpatient Medications Current Inpatient Medications: Current Inpatient Medications Acetaminophen (Acetaminophen 325 Mg Tab) 650 mg PO Q4H PRN PRN Reason: pain/fever Stop: 11/27/21 06:17 Apixaban (Apixaban 5 Mg Tablet) 5 mg PO BID [facility] Stop: 11/27/21 08:59 Last Admin: 10/31/21 09:35 Dose: 5 mg Documented by: Fluticasone Propionate (Fluticasone Propionate Na Spr 16 Gm Btl) 2 sprays NA DAILY [facility] Stop: 11/27/21 08:59 Last Admin: 10/31/21 09:35 Dose: 2 sprays Documented by: Hydralazine HCl (Hydralazine Hcl 20 Mg/Ml Vial) 5 mg IV Q6H PRN PRN Reason: hypertension Stop: 11/27/21 07:44 Last Admin: 10/30/21 00:22 Dose: 5 mg Documented by: Lisinopril (Lisinopril 20 Mg Tab) 20 mg PO QAM [facility] Stop: 11/30/21 08:59 Last Admin: 10/31/21 10:21 Dose: 20 mg Documented by: Loratadine (Loratadine 10 Mg Tab) 10 mg PO DAILY [facility] Stop: 11/27/21 08:59 Last Admin: 10/31/21 09:36 Dose: 10 mg Documented by: Metoprolol Tartrate (Metoprolol Tartrate 25 Mg Tab) 12.5 mg PO BID [facility] Stop: 11/27/21 08:59 Last Admin: 10/31/21 09:37 Dose: 12.5 mg Documented by: Ondansetron HCl (Ondansetron Inj 2 Mg/Ml 2 Ml Vial) 4 mg IV Q6H PRN PRN Reason: Nausea Stop: 11/27/21 06:17 Polyethylene Glycol (Polyethylene (Miralax) 17 Gm Pack) 17 gm PO DAILY PRN PRN Reason: Constipation Stop: 11/27/21 06:17 Sodium Chloride (Sodium Chloride 0.65% Na Soln 45 Ml ([place])) 1 sprays NA BID [facility] Stop: 11/27/21 08:59 Last Admin: 10/31/21 09:38 Dose: 1 sprays Documented by: Valacyclovir HCl (Valacyclovir Hcl 500 Mg Tablet) 500 mg PO DAILY [facility] Stop: 11/27/21 08:59 Last Admin: 10/31/21 09:34 Dose: 500 mg Documented by: Venlafaxine HCl (Venlafaxine Hcl Xr 150 Mg Capxr) 150 mg PO DAILY [facility] Stop: 11/27/21 08:59 Last Admin: 10/31/21 09:38 Dose: 150 mg Documented by: Vitamin D (Cholecalciferol 1,000 Units 25 Mcg Tab) 1,000 units PO DAILY [facility] Stop: 11/27/21 08:59 Last Admin: 10/31/21 09:35 Dose: 1,000 units Documented by:
--- NOTE | 2021-10-31 17:51 | Hospitalist Progress Note ---
Date of Service October 31, 2021 Assessment & Plan (1) Paranoia: Plan: 1. Paranoia and hallucinations. -Patient initially evaluated at [facility] on 10/28 -noted that labs, head CT, UDS, UA, Covid and influenza swabs were all unremarkable. When patient returned home, she refused to go inside due to fear of someone hiding in her home. Police were called and patient was brought to [facility] ED under a 302 warrant. 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 Recommends to continue home Effexor for now. If continued issues, could consider Risperdal 0.125 or .25 mg in the early evening. -UTI ruled out - ceftriaxone discontinued -Per psychiatry, patient does not have decision-making capacity around discharge disposition. Patient is estranged from her family, however does have a neighbor that checks in on her frequently. Patient is already set up with [facility] and has some services through them however doubt that patient is safe to return home independently at this time. May need a short rehab stay for further observation. Referral in place for [facility] however patient refusing rehab this evening. Will work with case management and [facility] of [facility] tomorrow for further options. 2. History of pulmonary embolism in 08/2021 -Continue Eliquis 3. Hypertension. -Lisinopril increased to 20 mg daily on 10/30, continuing home dose of metoprolol -Better BP control today 4. Anxiety. -Continue venlafaxine. 5. DVT prophylaxis -On Eliquis Dispo: Pending, as above Admission and Anticipated Discharge Date Admission Date: October 28, 2021 Supervising Physician Co-Signing Physician Notes Attending Addendum: delayed entry date of service noted above care coordinated with SANDOVAL Isaac please refer to her notes for full details, I agree with her notes patient seen and examined, records reviewed by myself as well on exam, patient seen resting in bed, comfortable not in distress very forgetful states somebody called her yesterday about her cat, cannot remember who called her no chest pain, dyspnea, palpitations, dizziness VS noted and reviewed oriented x 1-2, not in distress, speaks in sentences with no effort nor accessory muscle use normal rate, regular rhythm, no murmurs clear breath sounds bilaterally non distended, soft, nontender no bipedal edema, erythema, warmth no neuro deficits labs noted and reviewed ASSESSMENT AND PLAN Episode of Paranoid Behavior Possible Underlying Dementia - UTI ruled out - Psych consulted - patient would benefit from acute rehab, formal neurocognitive assessment as outpatient CM on board other diagnoses and plan of care as per SANDOVAL Isaac's notes Varun Buenrostro MD Subjective Patient seen and examined. Follow-up for paranoia. Patient resting in bed, offers no complaints. Eager to be discharged home. Oriented and pleasant however seems to have limited insight. Denies chest pain shortness of breath. No abdominal pain or nausea. Physical Exam Constitutional: WD/WN, vitals as above Respiratory: normal respiratory effort, lungs clear to auscultation Cardiovascular: Rate/Rhythm: regular rate and regular rhythm Vessels: normal peripheral pulses Extremities: no edema Gastrointestinal (Abdomen): Percussion/Palpation: abdomen soft; abdomen nontender Skin: no rashes, warm and dry Neurologic: no focal motor deficits Psychiatric: Orientation: alert and oriented x 3 Insight: + limited insight Difficulty remembering details, confabulating at times Results & Data Results & Data ([facility]) Vital Signs (Past 12 Hours) Vital Signs Temp Pulse Resp BP Pulse Ox 10/31/21 15:09 36.8 C 69 17 134/68 94 10/31/21 07:14 37.0 C 72 17 169/74 H 94
[2021-11-01] MEDS: APIXABAN 5 MG TABLET PO SCH ×2 (08:51→21:23)
[2021-11-01] MEDS: CHOLECALCIFEROL 1,000 UNITS 25 MCG TAB PO SCH (08:51)
[2021-11-01] MEDS: FLUTICASONE PROPIONATE NA SPR 16 GM BTL SCH (08:52)
[2021-11-01] MEDS: lisinopril 20 MG TAB PO SCH (08:52)
[2021-11-01] MEDS: LORATADINE 10 MG TAB PO SCH (08:53)
[2021-11-01] MEDS: METOPROLOL TARTRATE 25 MG TAB PO SCH ×2 (08:53→21:23)
[2021-11-01] MEDS: SODIUM CHLORIDE 0.65% NA SOLN 45 ML (OCEAN) SCH ×2 (08:54→21:24)
[2021-11-01] MEDS: valACYclovir HCL 500 MG TABLET PO SCH (08:54)
[2021-11-01] MEDS: VENLAFAXINE HCL XR 150 MG CAPXR PO SCH (08:55)
--- NOTE | 2021-11-01 10:54 | Hospitalist Progress Note ---
Date of Service November 01, 2021 Assessment & Plan (1) Paranoia: Plan: 1. Paranoia and hallucinations. -Patient initially evaluated at [facility] on 10/28 -noted that labs, head CT, UDS, UA, Covid and influenza swabs were all unremarkable. When patient returned home, she refused to go inside due to fear of someone hiding in her home. Police were called and patient was brought to [facility] ED under a 302 warrant. 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 Recommends to continue home Effexor for now. If continued issues, could consider Risperdal 0.125 or .25 mg in the early evening. -UTI ruled out - ceftriaxone discontinued -Per psychiatry, patient does not have decision-making capacity around discharge disposition. Patient is estranged from her family, however does have a neighbor that checks in on her frequently. Patient is already set up with [facility] and has some services through them however doubt that patient is safe to return home independently at this time. May need a short rehab stay for further observation. Referral in place for [facility] however patient refusing rehab. Will work with case management and office of aging for further options. 2. History of pulmonary embolism in 08/2021 -Continue Eliquis 3. Hypertension. -Lisinopril increased to 20 mg daily on 10/30, continuing home dose of metoprolol -BP controlled 4. Anxiety. -Continue venlafaxine. 5. DVT prophylaxis -On Eliquis Dispo: Pending, as above Admission and Anticipated Discharge Date Admission Date: October 28, 2021 Supervising Physician Co-Signing Physician Notes Patient is seen and examined bedside. Denies any hallucinations. Also denies any chest pain, shortness of breath, dizziness, nausea, abdominal pain. Eager to get discharged. Appreciate psychiatry input. On exam patient is moderately built and nourished, no apparent distress, normocephalic atraumatic, lungs are clear to auscultation, normal breath sounds, S1-S2, no murmur, no pedal edema, abdomen soft, nontender, normal bowel sounds. Alert, awake, oriented, grossly no focal deficits. Patient is being managed for paranoia, hallucinations. ? Dementia. Appreciate psychiatry input. On Effexor. Case management to help with discharge planning. Agree with continuing Eliquis for PE. I personally reviewed the record. Patient is interviewed and examined at bedside. Patient's care is coordinated with Marcela Isaac GENER[facility] ACCOUNTANT. Please refer to the documentation above for details of patient's presentation and for discussion of other issues. Subjective Patient seen and examined. Follow-up for paranoia. Patient irritable this morning about being discharged home. Insists that someone named Dereck is coming to pick her up today. Patient oriented however confabulating stories in details. Denies physical complaints. Review of Systems Review of Systems: All systems reviewed & are unremarkable except as noted in Subjective Physical Exam Constitutional: WD/WN, vitals as above no acute distress Respiratory: normal respiratory effort, lungs clear to auscultation Cardiovascular: Rate/Rhythm: regular rate and regular rhythm Skin: no rashes, warm and dry Neurologic: no focal motor deficits Psychiatric: Orientation: alert and oriented x 3 Affect: + irritable affect (Confabulating stories in details at times) Results & Data Results & Data ([facility]) Vital Signs (Past 12 Hours) Vital Signs Temp Pulse Resp BP Pulse Ox 11/01/21 08:30 36.5 C 69 18 135/68 90
--- NOTE | 2021-11-01 14:24 | Psychiatric Progress Note ---
Date of Service November 01, 2021 Impression / Recommendations Impression 81 yo female with significant age related hearing loss who lives alone, likely sundowns and becomes more paranoid at night. She is currently oriented but confused on timing of some events but otherwise no evidence of primary thought disorder. Paranoid and confusion seems to be improving a bit suggesting likely contribution from possible delirium versus dementia with sundowning with fluctuations. Tolerating Effexor XR well. No evidence of acute paranoia nor observations of responding to internal stimuli over the last three days and she remains fully oriented with organized and appropriate behavior. Decision Making Capacity: Capacity Evaluation Decision making capacity is decision-specific. No clinical opinion can be given regarding the patient's global decision-making ability. The patient was evaluated for the decision-making capacity regarding: desire to return home without going to subacute rehab or higher level of supportive living Does the patient have evidence of delirium or other altered mental status based on clinical evaluation? no, fully oriented and recalls recent events leading to hospitalization Does the patient understand their own medical condition? yes recalls becoming nervous and seeing something in her house that wasn't there "I panicked and saw something that wasn't there, next time I'll ignore it or go back to bed" Does the patient demonstrate ability to understand communication from the treatment team? Yes she understands they want her to attend subacute rehab or have additional support "I like living alone, I don't want to go somewhere else and I'm stable, I don't need help walking or getting back my strength" Does the patient indicate a clear choice regarding the decision? Yes she consistently states her desire to return home to her apartment Can the patient coherently explain the circumstances associated with this decision in their own words? Yes-she states she has been living alone for many years and enjoys living alone with just her cat, likes her apartment and understands she is now 81 but wants to be in her own environment even if that eventually means she won;t have as much support "I could one day but you know what, I'm 81, and I like being in my own place". Does the patient appreciate the risks, benefits, and alternatives of the decision? Yes-recognizes that team worries she could fall or get paranoid again or even but states that she feels she could get help and that if she dies "that's what happens as you get old, but I'm healthy and I can get help from my neighbors if something happened or call 911" Can the patient insightfully describe the possible consequences of given treatment options? Yes she can describe risks of going home and that going to subacute rehab would provide support but that "I want to be at home and I am walking fine". Can the patient compare treatment options, consequences of those options, and rationally present the reasons for their choice? Yes-she understands recommendation but wants to go home, even with risk that she could or get pa ranoid again, as she likes living independently and values this the most in her life right now. Based on her improved mental status, organized behavior, stable mood and ability to consistently communicate a choice, understand the information provided by her providers, appreciate potential consequences, and manipulate relevant information she is felt to have decision making capacity to chose to go home. Discussed recommendation that she consider hearing aids, possible life alert device, and additional home health services to ensure that she has enough support and to help reduce the chances for future paranoia/episodes of confusion/wandering. (1) Paranoia: -she would benefit from hearing aides as likely misinterpreting home environment in evenings when dark and worsening likely due to cognitive changes -recommend avoiding antipsychotics in favor of increased home supports particularly given no acute behavioral events since presenting to the hospital and significant medication side effects/risks. -continue with Effexor XR 150 mg qd -will discontinue 302 warrant tomorrow as she does not have a primary psychiatric condition -she has decision making capacity to return home and refuse subacute rehab or higher level of care/more supportive living environment based on the evaluation today as detailed above Risk Factors Assessment Do You Have Access To A Gun?: No Interval History Identifying Information 81 yo woman with history of hearing impairment, PE, HTN, anxiety and recent paranoia concerning for worsening cognitive dysfunction. Psychiatry was consulte d for recommendations regarding paranoia and then for decision making capacity. Chief Complaint "I want to go home". Review of Systems Notes Reports stable sleep and appetite. Observed eating her lunch while we talked. Subjective Subjective Patient was seen & assessed and interval progress reviewed. Romana remains focused on her desire to return home and psychiatry was asked to evaluate her for her decision making capacity to return home. Discussed with her provider Marcela Isaac who counseled patient on potential risks of returning home without going to subacute rehab and given concern for events of paranoia prior to admission. Today Romana is fully oriented knowing the name of the hospital "it's written right there on the board, deja", the month, the date and the year. She consistently states her decision of wanting to return home. She is insightful about her mood noting she is "grumpy and mean" today because "I want to go home, I'm sick of being here". She reports feeling healthy, denies weakness and reiterates "I like living by myself, I've been doing so for almost 20 years" and "I want to be home with my cat". She reports getting help with laundry and grocery shopping and having neighbors who can help if needed. In asking about risks of going home she states "I could , but you know what, I'm 81, if that happens it happens". She also notes that she has tripped before and "managed just fine". She understands the PT recommendation is for subacute rehab but she states "I can walk fine, I'm stable and I've only tripped once before at home and that was because I was distracted". States if she fell or needed help she would "bang on the wall or open the window and shout out for help or bang on the floor until one of my neighbors heard me". She states if she could access the phone "I'd call 911, duh". She acknowledges that she was confused at home and that her mind played tricks on her. She states this has only ever happened at night and that "I think it's because I panicked, next time I'll just go back to bed". States "I know I'm getting more confused sometimes, it's because I'm 81". She reiterates "Please let me go home, I like my house and I want to be with my cat and I feel good". Physical Exam Psychiatric Orientation: alert and oriented x 3 Apperance: appropriately dressed and appropriately groomed Eye Contact: good eye contact Motor Behavior: no abnormal motor movements Speech: normal rate/rhythm/volume of speech Affect: + irritable affect Mood: + irritable mood; no depressed mood and no anxious mood Thought Process: goal directed thought process Thought Content: reality based without delusions Suicidal Thoughts: denies suicidal thoughts Homicidal Thoughts: denies homicidal thoughts Hallucinations: no auditory hallucinations and no visual hallucinations Cognition: recent memory grossly intact, remote memory grossly intact, attention grossly intact and language grossly intact Estimated Intelligence: consistent with education level Insight: + fair insight Judgement: + fair judgement Vital Signs (Past 24 Hours) Last Vital Signs Temp 36.5 C 11/01/21 08:30 Pulse 69 11/01/21 08:30 Resp 18 11/01/21 08:30 BP 135/68 11/01/21 08:30 Pulse Ox 90 11/01/21 08:30 Results & Data ([facility]) Current Inpatient Medications Current Inpatient Medications: Current Inpatient Medications Acetaminophen (Acetaminophen 325 Mg Tab) 650 mg PO Q4H PRN PRN Reason: pain/fever Stop: 11/27/21 06:17 Apixaban (Apixaban 5 Mg Tablet) 5 mg PO BID [facility] Stop: 11/27/21 08:59 Last Admin: 11/01/21 08:51 Dose: 5 mg Documented by: Fluticasone Propionate (Fluticasone Propionate Na Spr 16 Gm Btl) 2 sprays NA DAILY [facility] Stop: 11/27/21 08:59 Last Admin: 11/01/21 08:52 Dose: 2 sprays Documented by: Hydralazine HCl (Hydralazine Hcl 20 Mg/Ml Vial) 5 mg IV Q6H PRN PRN Reason: hypertension Stop: 11/27/21 07:44 Last Admin: 10/30/21 00:22 Dose: 5 mg Documented by: Lisinopril (Lisinopril 20 Mg Tab) 20 mg PO QAM [facility] Stop: 11/30/21 08:59 Last Admin: 11/01/21 08:52 Dose: 20 mg Documented by: Loratadine (Loratadine 10 Mg Tab) 10 mg PO DAILY [facility] Stop: 11/27/21 08:59 Last Admin: 11/01/21 08:53 Dose: 10 mg Documented by: Metoprolol Tartrate (Metoprolol Tartrate 25 Mg Tab) 12.5 mg PO BID [facility] Stop: 11/27/21 08:59 Last Admin: 11/01/21 08:53 Dose: 12.5 mg Documented by: Ondansetron HCl (Ondansetron Inj 2 Mg/Ml 2 Ml Vial) 4 mg IV Q6H PRN PRN Reason: Nausea Stop: 11/27/21 06:17 Polyethylene Glycol (Polyethylene (Miralax) 17 Gm Pack) 17 gm PO DAILY PRN PRN Reason: Constipation Stop: 11/27/21 06:17 Sodium Chloride (Sodium Chloride 0.65% Na Soln 45 Ml ([place])) 1 sprays NA BID [facility] Stop: 11/27/21 08:59 Last Admin: 11/01/21 08:54 Dose: 1 sprays Documented by: Valacyclovir HCl (Valacyclovir Hcl 500 Mg Tablet) 500 mg PO DAILY [facility] Stop: 11/27/21 08:59 Last Admin: 11/01/21 08:54 Dose: 500 mg Documented by: Venlafaxine HCl (Venlafaxine Hcl Xr 150 Mg Capxr) 150 mg PO DAILY [facility] Stop: 11/27/21 08:59 Last Admin: 11/01/21 08:55 Dose: 150 mg Documented by: Vitamin D (Cholecalciferol 1,000 Units 25 Mcg Tab) 1,000 units PO DAILY [facility] Stop: 11/27/21 08:59 Last Admin: 11/01/21 08:51 Dose: 1,000 units Documented by:
[2021-11-02] MEDS: VENLAFAXINE HCL XR 150 MG CAPXR PO SCH (08:03)
[2021-11-02] MEDS: CHOLECALCIFEROL 1,000 UNITS 25 MCG TAB PO SCH (08:03)
[2021-11-02] MEDS: METOPROLOL TARTRATE 25 MG TAB PO SCH ×2 (08:03→20:04)
[2021-11-02] MEDS: lisinopril 20 MG TAB PO SCH (08:04)
[2021-11-02] MEDS: APIXABAN 5 MG TABLET PO SCH ×2 (08:04→20:05)
[2021-11-02] MEDS: valACYclovir HCL 500 MG TABLET PO SCH (08:04)
[2021-11-02] MEDS: SODIUM CHLORIDE 0.65% NA SOLN 45 ML (OCEAN) SCH ×2 (08:04→20:05)
[2021-11-02] MEDS: LORATADINE 10 MG TAB PO SCH (08:04)
[2021-11-02] MEDS: FLUTICASONE PROPIONATE NA SPR 16 GM BTL SCH (08:05)
--- NOTE | 2021-11-02 12:10 | Psychiatric Progress Note ---
Date of Service November 02, 2021 Impression / Recommendations Impression 81 yo female with significant age related hearing loss who lives alone, likely sundowns and becomes more paranoid at night. She is currently oriented but confused on timing of some events but otherwise no evidence of primary thought disorder. Paranoid and confusion has significantly improved suggesting likely contribution from possible delirium versus dementia with sundowning with fluctuations. Tolerating Effexor XR well. No evidence of acute paranoia nor observations of responding to internal stimuli over the last three days and she remains fully oriented with organized and appropriate behavior. From a psy chiatric standpoint remains stable for discharge once some additional home based supports are available. (1) Paranoia: -she would benefit from hearing aides as likely misinterpreting home environment in evenings when dark and worsening likely sundowning due to cognitive changes -recommend avoiding antipsychotics in favor of increased home supports par ticularly given no acute behavioral events since presenting to the hospital and significant medication side effects/risks. -continue with Effexor XR 150 mg qd -will discontinue 302 warrant tomorrow as she does not have a primary psychiatric condition -she has decision making capacity to return home and refuse subacute rehab or higher level of care/more supportive living environment Risk Factors Assessment Do You Have Access To A Gun?: No Interval History Identifying Information 81 yo woman with history of hearing impairment, PE, HTN, anxiety and recent paranoia concerning for worsening cognitive dysfunction. Psychiatry was consulted for recommendations regarding paranoia and then for decision making capacity. Chief Complaint "I'm good, I get to go home soon". Review of Systems Notes Endorses stable sleep and appetite. Subjective Subjective Patient was seen & assessed and interval progress reviewed. Today Romana reports positive mood which she attributes to being able to go home soon and be reunited with her cat. She remains fully oriented, recalls seeing me from previous days, behavior remains organized and appropriate and she is future-oriented about being back at home. We can discuss the recommendation that she pursues getting hearing aids she states she will discuss it with her primary care doctor but acknowledges "they're expensive". Discussed potential resources that may be able to help with lowering the cost like office of aging or that her PCP may be aware of. Discussed pill organization at home and she uses two pill organizers and feels confident doing this ("one for my medications of the week and second for the medications for the following week"). 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 Physical Exam Psychiatric Orientation: alert and oriented x 3 Apperance: appropriately dressed and appropriately groomed Eye Contact: good eye contact Motor Behavior: no abnormal motor movements Speech: normal rate/rhythm/volume of speech Affect: euthymic affect Mood: no depressed mood and no anxious mood Thought Process: goal directed thought process Thought Content: reality based without delusions Suicidal Thoughts: denies suicidal thoughts Homicidal Thoughts: denies homicidal thoughts Hallucinations: no auditory hallucinations and no visual hallucinations Cognition: recent memory grossly intact, remote memory grossly intact, attention grossly intact and language grossly intact Estimated Intelligence: consistent with education level Insight: + fair insight Judgement: + fair judgement Vital Signs (Past 24 Hours) Last Vital Signs Temp 36.6 C 11/02/21 07:23 Pulse 60 11/02/21 07:23 Resp 18 11/02/21 07:23 BP 136/57 L 11/02/21 07:23 Pulse Ox 92 11/02/21 07:23 Results & Data ([facility]) Current Inpatient Medications Current Inpatient Medications: Current Inpatient Medications Acetaminophen (Acetaminophen 325 Mg Tab) 650 mg PO Q4H PRN PRN Reason: pain/fever Stop: 11/27/21 06:17 Apixaban (Apixaban 5 Mg Tablet) 5 mg PO BID [facility] Stop: 11/27/21 08:59 Last Admin: 11/02/21 08:04 Dose: 5 mg Documented by: Fluticasone Propionate (Fluticasone Propionate Na Spr 16 Gm Btl) 2 sprays NA DAILY [facility] Stop: 11/27/21 08:59 Last Admin: 11/02/21 08:05 Dose: 2 sprays Documented by: Hydralazine HCl (Hydralazine Hcl 20 Mg/Ml Vial) 5 mg IV Q6H PRN PRN Reason: hypertension Stop: 11/27/21 07:44 Last Admin: 10/30/21 00:22 Dose: 5 mg Documented by: Lisinopril (Lisinopril 20 Mg Tab) 20 mg PO QAM [facility] Stop: 11/30/21 08:59 Last Admin: 11/02/21 08:04 Dose: 20 mg Documented by: Loratadine (Loratadine 10 Mg Tab) 10 mg PO DAILY [facility] Stop: 11/27/21 08:59 Last Admin: 11/02/21 08:04 Dose: 10 mg Documented by: Metoprolol Tartrate (Metoprolol Tartrate 25 Mg Tab) 12.5 mg PO BID [facility] Stop: 11/27/21 08:59 Last Admin: 11/02/21 08:03 Dose: 12.5 mg Documented by: Ondansetron HCl (Ondansetron Inj 2 Mg/Ml 2 Ml Vial) 4 mg IV Q6H PRN PRN Reason: Nausea Stop: 11/27/21 06:17 Polyethylene Glycol (Polyethylene (Miralax) 17 Gm Pack) 17 gm PO DAILY PRN PRN Reason: Constipation Stop: 11/27/21 06:17 Sodium Chloride (Sodium Chloride 0.65% Na Soln 45 Ml ([place])) 1 sprays NA BID [facility] Stop: 11/27/21 08:59 Last Admin: 11/02/21 08:04 Dose: 1 sprays Documented by: Valacyclovir HCl (Valacyclovir Hcl 500 Mg Tablet) 500 mg PO DAILY [facility] Stop: 11/27/21 08:59 Last Admin: 11/02/21 08:04 Dose: 500 mg Documented by: Venlafaxine HCl (Venlafaxine Hcl Xr 150 Mg Capxr) 150 mg PO DAILY [facility] Stop: 11/27/21 08:59 Last Admin: 11/02/21 08:03 Dose: 150 mg Documented by: Vitamin D (Cholecalciferol 1,000 Units 25 Mcg Tab) 1,000 units PO DAILY [facility] Stop: 11/27/21 08:59 Last Admin: 11/02/21 08:03 Dose: 1,000 units Documented by:
--- NOTE | 2021-11-02 16:34 | Hospitalist Progress Note ---
Date of Service November 02, 2021 Assessment & Plan (1) Paranoia: Plan: Paranoia and hallucinations Initially evaluated at [facility] on 10/28 -noted that labs, head CT, UDS, UA, Covid and influenza swabs were all unremarkable. When patient returned home, she refused to go inside due to fear of someone hiding in her home. Police were called and patient was brought to [facility] ED under a [address] Eval[address] by Dr. Murcia of psychiatry -likely underlying cognitive dysfunction and dementia with . Recommends continuing home Effexor for now. If continued issues, consider Risperdal 0.125 or .25 mg in the early evening Patient has decision making capacity to return home per psych eval. Refuses subacute rehab or higher level of care Plan to return home with HH but services unavailable till next Discussing increasing services provided by [facility] Aging with [facility] to augment home health - plan to continue discussion tomorrow History of pulmonary embolism in 08/2021 Continue Eliquis Hypertension Lisinopril increased to 20 mg daily on 10/30, continuing home dose of metoprolol Anxiety Continue Effexor DVT prophylaxis On Eliquis Dispo: Pending, as above Admission and Anticipated Discharge Date Admission Date: October 28, 2021 Supervising Physician Co-Signing Physician Notes Patient is seen and examined bedside. Lying comfortably during my encounter. Denies any hallucinations, chest pain, shortness of breath, dizziness, nausea, abdominal pain. On exam patient is moderately built and nourished, no apparent distress, normocephalic atraumatic, lungs are clear to auscultation, normal breath sounds, S1-S2, no murmur, no pedal edema, abdomen soft, nontender, normal bowel sounds. Alert, awake, oriented, grossly no focal deficits. Patient is being managed for paranoia, hallucinations. ? Dementia. Appreciate psychiatry input. On Effexor. Case management to help with discharge planning. Agree with continuing Eliquis for PE. Likely plan to discharge home tomorrow once home health arranged. I personally reviewed the record. Patient is interviewed and examined at bedside. Patient's care is coordinated with Nneka Brown PA-C. Please refer to the documentation above for details of patient's presentation and for discussion of other issues. Subjective Patient seen and examined in 386-2 in follow-up for paranoia. Pleasant during interview, looking forward to going home. Denies any new complaints. Oriented however confabulating stories in details. No fever, chills, CP, SOB, N/V/D, dysuria, abdominal pain or constipation. Review of Systems Review of Systems: At least ten systems reviewed and negative except as noted in the HPI. Physical Exam Physical Exam: Gen: WD/WN, NAD, sitting in bedside chair, A&Ox3 with some confabulating stories in details at times HEENT: Normocephalic, atraumatic, conjunctivae moist, sclerae anicteric, mucous membranes moist Lung: Clear to Auscultation bilaterally, no wheezes/rales/rhonchi Heart: Regular rate, regular rhythm, no murmurs, rubs, or gallops Abdomen: Soft, NT, ND +BS x 4 Extremities: no edema Skin: Warm, no rash Results & Data Results & Data ([facility]) Vital Signs (Past 12 Hours) Vital Signs Temp Pulse Resp BP BP Pulse Ox 11/02/21 15:47 36.9 C 69 20 164/76 H 91 11/02/21 07:23 36.6 C 60 18 136/57 L 92
[2021-11-03] MEDS: CHOLECALCIFEROL 1,000 UNITS 25 MCG TAB PO SCH (10:09)
[2021-11-03] MEDS: APIXABAN 5 MG TABLET PO SCH (10:09)
[2021-11-03] MEDS: valACYclovir HCL 500 MG TABLET PO SCH (10:09)
[2021-11-03] MEDS: METOPROLOL TARTRATE 25 MG TAB PO SCH (10:09)
[2021-11-03] MEDS: LORATADINE 10 MG TAB PO SCH (10:09)
[2021-11-03] MEDS: VENLAFAXINE HCL XR 150 MG CAPXR PO SCH (10:09)
[2021-11-03] MEDS: lisinopril 20 MG TAB PO SCH (10:10)
[2021-11-03] MEDS: SODIUM CHLORIDE 0.65% NA SOLN 45 ML (OCEAN) SCH (10:13)
[2021-11-03] MEDS: FLUTICASONE PROPIONATE NA SPR 16 GM BTL SCH (10:13)
--- NOTE | 2021-11-03 11:17 | Discharge Summary ---
Date of Service November 03, 2021 Admission HPI Per Admitting Provider This is an 81-year-old female with past medical history significant for hyperlipidemia, pulmonary embolism, orthostatic hypotension, dynamic left ventricular outflow obstruction, GERD, complicated UTI, ambulatory dysfunction, generalized anxiety disorder, who was brought in because of paranoia. Patient lives alone. She was found on neighbors porch. She seems to be delusional and paranoid and she was sent to the [facility] yesterday. While she was there, had a CT of the head and labs, unremarkable. The patient was not suicidal or homicidal. The patient is not doing ok otherwise, she was discharged back home. The patient was taken to the house. She did not want to go inside because she felt someone was inside the house, even after police checked her house and said no one is there. She still says someone is hiding inside and she does not want to go. The 301 statement was written by [facility] and brought back. As the patient was unable to care of herself and as the [facility] was on diversion, she was brought in here. Per the ER physician, patient is able to answer all questions appropriately, except she was seeing someone in her house. She could remember that she recently had a blood clot and on Eliquis. Currently, as it is felt not safe to send her back home, so we were called for admission and evaluation by Psychiatry and Neurology and further plan of care. Currently, patient is very hard of hearing, resting, somewhat sleepy, says she is doing fine. Denies any pain or chest pain. No nausea, no cough, or shortness of breath. Could not get any history from the patient currently, and is noncooperative at this time. Admission Exam Per Admitting Provider GENERAL: The patient is somewhat drowsy, but arousable. VITAL SIGNS: Temperature 37.2, pulse 80, respiratory rate 20, blood pressure 176/74, oxygen 95% on room air. HEENT: Atraumatic. NECK: No JVD. No neck masses seen. CARDIOVASCULAR: S1 and S2 heard. Regular rate and rhythm. No murmur, no gallop. RESPIRATORY SYSTEM: Normal AP diameter. No accessory muscle use. No wheezing, no crackles. ABDOMEN: Soft, bowel sounds present, nontender, no distention. CENTRAL NERVOUS SYSTEM: Drowsy, but arousable. Alert and awake. Speech is clear. No facial droop. Moves extremities. EXTREMITIES: No edema, no erythema. Principal Diagnosis paranoia Discharge Exam Gen: WD/WN, NAD, sitting in bedside chair, A&Ox3 with some confabulating stories in details at times HEENT: Normocephalic, atraumatic, conjunctivae moist, sclerae anicteric, mucous membranes moist Lung: Clear to Auscultation bilaterally, no wheezes/rales/rhonchi Heart: Regular rate, regular rhythm, no murmurs, rubs, or gallops Abdomen: Soft, NT, ND +BS x 4 Extremities: no edema Skin: Warm, no rash Discharge Data Allergies Allergy/AdvReac Type Severity Reaction Status Date / Time No Known Allergies Allergy Unverified 10/28/21 01:30 Consultations 10/28/21 02:16 ED Decision to Admit Stat 10/28/21 06:18 Consult Psychiatry Routine 10/28/21 08:00 Consult Neurology Routine Hospital Course (1) Paranoia: (2) Generalized anxiety disorder: (3) Hyperlipidemia: (4) GERD (gastroesophageal reflux disease): (5) Pulmonary embolism: (6) Hypertension: This is an 81-year-old female with past medical history significant for hyperlipidemia, pulmonary embolism, orthostatic hypotension, dynamicleft ventricular outflow obstruction, GERD, complicated UTI, ambulatory dysfunction, generalized anxiety disorder, who was brought in because of paranoia. Was initially evaluated at [facility] on 10/28 and underwent work up that was unremarkable. Lab work, CT head, UDS, UA, Covid and influenza swabs were all WNL. When patient returned home, she refused to go inside due to fear of someone hiding in her home. Police were called and patient was brought to [facility] ED under a 302 warrant. During this admission, patient was evaluated by psychiatry and felt to have likely underlying cognitive dysfunction and dementia with sundowning. Recommended to continue current dose of home Effexor for now. If continued issues, consider Risperdal 0.125 or .25 mg in the early evening. Was found to have decision making capacity to return home per psych evaluation. Refuses subacute rehab or higher level of care. Home health arranged by case management but unavailable until next week. Coordinated additional check ins by [facility] prior to start of home health and [facility]'s continued involvement. Issues in the past with patient answering the door and phone calls of support services. Readdressed importance of communicating with these services with patient today. No medication changes. Patient hemodynamically stable at time of discharge. Total Time Total Time Spent Total Time Spent (In Minutes): 50 Discharge Plan Discharge Items Patient Disposition: Home - Home Health Services Reason For Visit: PARANOIA Discharge Diagnosis: paranoia Activity: Resume your previous activity Non-emergency contact: Primary Care Provider Call non-emergency contact if: you have any medication questions, your symptoms worsen and your pain is not controlled Follow-up/Referrals: Janice Maradiaga CRNP [Outside Practitioners] - ([address] Office Your physician's office will call you to set up an appointment. If you do not hear from them, please call the number provided. ) Diet: Heart Healthy Addtl Attending Provider Instructions: You were admitted for paranoia and hallucinations and evaluated by psychiatry that has since improved. Work up including lab work, UA and covid all negative. No evidence of urinary infection. Evaluated by psychiatry, who feels there is a likely underlying cognitive dysfunction and dementia with . Psychiatry feels you have the ability to make the decision to return home. Plan to return home today with [facility] support as well as home health services available next . No medication changes. Continue all home meds as below. OTHER INSTRUCTIONS: Seek medical attention if you have: * temperature above 101 * chest pain or trouble breathing * abdominal pain, nausea, vomiting * diarrhea, dark stools or bloody stools * any unanswered questions or concerns Call 911 if symptoms are severe. Please take good care of yourself. Call if you have any questions or problems. You can reach a [facility] hospitalist on duty at [facility] 24 hours a day by calling [phone]. LOUISE Delcid Hospitalist Pending Studies at Discharge: No Stand-Alone Forms: My [facility], Smoking Cessation Medications and DC Order Prescriptions: Continued venlafaxine 150 mg Capsule,Extended Release 24hr 150 mg PO DAILY RF: 0 valacyclovir 500 mg Tablet 500 mg PO DAILY RF: 0 lisinopril 10 mg Tablet 10 mg PO DAILY RF: 0 fluticasone propionate [Flonase Allergy Relief] 50 mcg/actuation Johnson,Suspension 2 spray INTRANASAL DAILY RF: 0 loratadine 10 mg Tablet 10 mg PO DAILY RF: 0 sodium chloride [[place]eson Nasal] 0.65 % Aerosol,Johnson 1 spray INTRANASAL BID RF: 0 metoprolol tartrate 25 mg Tablet 12.5 mg PO BID RF: 0 cholecalciferol (vitamin D3) 25 mcg (1,000 unit) Tablet 25 mcg PO DAILY RF: 0 Eliquis 5 mg tablet 5 mg PO BID RF: 0 Discharge Orders: Discharge Order (Routine); Ordered 11/03/21 Ordered By: Nneka Brown Admission Data Admit Date/Time: 10/28/21 03:17 Attending Provider: Leoncio Roblero Admit Provider: Jaron Arboleda Primary Care Provider: PCP,NO Other Providers: Jaron Arboleda ; Ninoska Murcia ; Lina Lowry ; Shama Rhodes ; Frank Mcgee ; Liliana Nascimento ; [facility] ; [facility] ; Nneka Brown ; [place] Other Interventions: Discharge Summary Assessment (RN) Last Done: 11/03/21 12:00 Supervising Physician Co-Signing Physician Notes Patient is seen and examined bedside. Eager to get discharged. Denies any hallucinations, chest pain, shortness of breath, dizziness, nausea, abdominal pain. On exam patient is moderately built and nourished, no apparent distress, normocephalic atraumatic, lungs are clear to auscultation, normal breath sounds, S1-S2, no murmur, no pedal edema, abdomen soft, nontender, normal bowel sounds. Alert, awake, oriented, grossly no focal deficits. Patient is being managed for paranoia, hallucinations. ? Dementia. Appreciate psychiatry input. On Effexor. Case management to help with discharge planning. Agree with continuing Eliquis for PE. Likely plan to discharge home today. I personally reviewed the record. Patient is interviewed and examined at bedside. Patient's care is coordinated with Nneka Brown PA-C. Please refer to the documentation above for details of patient's presentation and for discussion of other issues.
--- NOTE | 2021-11-03 11:44 | Psychiatric Progress Note ---
Date of Service November 03, 2021 Impression / Recommendations Impression 81 yo female with significant age related hearing loss who lives alone, likely sundowns and becomes more paranoid at night. She is currently oriented but confused on timing of some events but otherwise no evidence of primary thought disorder. Paranoid and confusion has significantly improved suggesting likely contribution from possible delirium versus dementia with sundowning with fluctuations. Tolerating Effexor XR well. No evidence of acute paranoia nor observations of responding to internal stimuli over the last three days and she remains fully oriented with organized and appropriate behavior. From a psy chiatric standpoint remains stable for discharge once some additional home based supports are available. (1) Paranoia: -she would benefit from hearing aides as likely misinterpreting home environment in evenings when dark and worsening likely sundowning due to cognitive changes -recommend avoiding antipsychotics in favor of increased home supports par ticularly given no acute behavioral events since presenting to the hospital and significant medication side effects/risks. -continue with Effexor XR 150 mg qd -she has decision making capacity to return home and refuse subacute rehab or higher level of care/more supportive living environment Risk Factors Assessment Do You Have Access To A Gun?: No Interval History Identifying Information 81 yo woman with history of hearing impairment, PE, HTN, anxiety and recent paranoia concerning for worsening cognitive dysfunction. Psychiatry was consulted for recommendations regarding paranoia and then for decision making capacity. Chief Complaint "I'm going home today at noon". Review of Systems Notes Reports stable sleep and appetite. Subjective Subjective Patient was seen & assessed and interval progress reviewed. Romana was walking in the guillen with her nurse and then seen later sitting in bed. She expressed excitement about going home and seeing her cat and understanding of home health services. Reiterated that she does not feel concerned about safety at her home and will reach out to neighbors or go back to sleep if she develops "panic". Physical Exam Psychiatric Orientation: alert and oriented x 3 Apperance: appropriately dressed and appropriately groomed Eye Contact: good eye contact Motor Behavior: no abnormal motor movements Speech: normal rate/rhythm/volume of speech Affect: euthymic affect Mood: no depressed mood and no anxious mood Thought Process: goal directed thought process Thought Content: reality based without delusions Suicidal Thoughts: denies suicidal thoughts Homicidal Thoughts: denies homicidal thoughts Hallucinations: no auditory hallucinations and no visual hallucinations Cognition: recent memory grossly intact, remote memory grossly intact, attention grossly intact and language grossly intact Insight: + fair insight Judgement: + fair judgement Vital Signs (Past 24 Hours) Last Vital Signs Temp 36.6 C 11/03/21 07:58 Pulse 61 11/03/21 07:58 Resp 16 11/03/21 07:58 BP 137/56 L 11/03/21 07:58 Pulse Ox 93 11/03/21 07:58 Results & Data ([facility]) Current Inpatient Medications Current Inpatient Medications: Current Inpatient Medications Acetaminophen (Acetaminophen 325 Mg Tab) 650 mg PO Q4H PRN PRN Reason: pain/fever Stop: 11/27/21 06:17 Apixaban (Apixaban 5 Mg Tablet) 5 mg PO BID [facility] Stop: 11/27/21 08:59 Last Admin: 11/03/21 10:09 Dose: 5 mg Documented by: Fluticasone Propionate (Fluticasone Propionate Na Spr 16 Gm Btl) 2 sprays NA DAILY [facility] Stop: 11/27/21 08:59 Last Admin: 11/03/21 10:13 Dose: 2 sprays Documented by: Hydralazine HCl (Hydralazine Hcl 20 Mg/Ml Vial) 5 mg IV Q6H PRN PRN Reason: hypertension Stop: 11/27/21 07:44 Last Admin: 10/30/21 00:22 Dose: 5 mg Documented by: Lisinopril (Lisinopril 20 Mg Tab) 20 mg PO QAM LEON Stop: 11/30/21 08:59 Last Admin: 11/03/21 10:10 Dose: 20 mg Documented by: Loratadine (Loratadine 10 Mg Tab) 10 mg PO DAILY LEON Stop: 11/27/21 08:59 Last Admin: 11/03/21 10:09 Dose: 10 mg Documented by: Metoprolol Tartrate (Metoprolol Tartrate 25 Mg Tab) 12.5 mg PO BID LEON Stop: 11/27/21 08:59 Last Admin: 11/03/21 10:09 Dose: 12.5 mg Documented by: Ondansetron HCl (Ondansetron Inj 2 Mg/Ml 2 Ml Vial) 4 mg IV Q6H PRN PRN Reason: Nausea Stop: 11/27/21 06:17 Polyethylene Glycol (Polyethylene (Miralax) 17 Gm Pack) 17 gm PO DAILY PRN PRN Reason: Constipation Stop: 11/27/21 06:17 Sodium Chloride (Sodium Chloride 0.65% Na Soln 45 Ml ([place])) 1 sprays NA BID LEON Stop: 11/27/21 08:59 Last Admin: 11/03/21 10:13 Dose: 1 sprays Documented by: Valacyclovir HCl (Valacyclovir Hcl 500 Mg Tablet) 500 mg PO DAILY LEON Stop: 11/27/21 08:59 Last Admin: 11/03/21 10:09 Dose: 500 mg Documented by: Venlafaxine HCl (Venlafaxine Hcl Xr 150 Mg Capxr) 150 mg PO DAILY ELON Stop: 11/27/21 08:59 Last Admin: 11/03/21 10:09 Dose: 150 mg Documented by: Vitamin D (Cholecalciferol 1,000 Units 25 Mcg Tab) 1,000 units PO DAILY LEON Stop: 11/27/21 08:59 Last Admin: 11/03/21 10:09 Dose: 1,000 units Documented by:
== END 2021-11-03 12:54 | disposition home health service (06) | DRG 885 ==
LOC: EDBD → ED 00:50 → EDINP 03:17 → SUATTDRO 03:17 → EDINP 06:07 → 3N 06:24
DX: F91.9 Conduct disorder, unspecified; Z86.711 Personal history of pulmonary embolism; F41.1 Generalized anxiety disorder; E86.0 Dehydration; H91.90 Unspecified hearing loss, unspecified ear; I10 Essential (primary) hypertension; F05 Delirium due to known physiological condition; F22 Delusional disorders